=== PATIENT | male | born 1955 | race American Indian/Alaskan Native ===

== ENCOUNTER 2017-03-13 08:11 | Inpatient (IN) | payer OTHER ==
[~2017-03-13 08:11] MED LIST: KETALAR ONE; QUELICIN ONE; ZEMURON IV ONE
[2017-03-13] MEDS ORDERED: ARTIFICIAL TEARS OPHTH OINT OU PRN (08:24)
[2017-03-13] MEDS ORDERED: VASELINE LIP THERAPY TP PRN (08:24)
[2017-03-13] MEDS ORDERED: KETALAR IV ONE (08:27)
--- NOTE | 2017-03-13 08:39 | Admit Criteria Form ---
Admission Criteria Documentation: RESPIRATORY FAILURE GRG Clinical Indications for Admission to Inpatient Care (Place 'X' for any and all applicable criteria): Hospital admission is needed for appropriate care of the patient because of acute respiratory failure or insufficiency as indicated by ANY ONE of the following(1)(2)(3)(4)(5)(6)(7)(8): [ X]I. Mechanical ventilation needed (acute invasive or noninvasive) [ ]II. Severe ventilation deficit as indicated by ANY ONE of the following (9) [ ]a) Respiratory acidosis (pH less than 7.32 and partial pressure of carbon dioxide greater than 40 mm Hg (5.3 kPa)) [ ]b) Partial pressure of carbon dioxide greater than 44 mm Hg (5.9 kPa ) (new) [ ]c) Airflow measurements less than 25% of predicted (eg, peak expiratory flow rate less than 100 L/minute) [ ]d) Forced vital capacity less than 15 mL/kg of ideal body weight, or 50% decrease in vital capacity from baseline [ ]III. Noncardiac pulmonary edema not resolving with rapid emergency treatment (8) [ ]IV. Severe respiratory distress as indicated by ANY ONE of the following: [ ]a) Severe tachypnea (respiratory rate greater than 30, greater than 45 for 6-month-old, greater than 60 for ) [ ]b) Severe hypoxemia (partial pressure of oxygen less than 50 mm Hg ( 6.7 kPa) on greater than 50% oxygen or partial pressure of oxygen to FIO2 ratio less than 200) [ ]c) Mental status deterioration from respiratory disease [ ]V. Airway obstruction or inadequate protection [A](10)(11) The original [employer] content created by [employer] has been revised. The portions of the content which have been revised are identified through the use of italic text or in bold, and [email or web address] has neither reviewed nor approved the modified material. All other unmodified content is copyright [employer]. Please see references footnoted in the original [employer] edition 2016 Admission Criteria Met: Yes
[2017-03-13 08:57] LABS: Basophils % (Auto) 0.8 % (0.0-1.8); Eosinophils % (Auto) 3.5 % (0.0-4.3); Hematocrit 46.9 % (35.5-45.6); Hemoglobin 15.3 gm/dl (11.8-15.2); Mean Corpuscular HGB Conc 33 % (32-34); Mean Corpuscular Hemoglobin 33 pg (28-32); Mean Corpuscular Volume 100 fl (84-94); Platelet Count 251 K/mm3 (140-440); Red Blood Count 4.71 M/mm3 (3.65-5.03); Red Cell Distribution Width 13.8 % (13.2-15.2); White Blood Count 10.3 K/mm3 (4.5-11.0)
--- NOTE | 2017-03-13 09:05 | XRay Report ---
Single view chest: History: ET tube placement. Findings: Normal cardiomediastinal silhouette. Trachea is midline. Tip of endotracheal tube in normal position. No consolidation or pleural effusion. Impression: No consolidation or pleural effusion. Stable endotracheal tube.
[2017-03-13 09:07] LABS: Urine Drugs of Abuse Note Disclamer
[2017-03-13 09:11] LABS: Calcium 9.4 mg/dL (8.4-10.2); Chloride 100.5 mmol/L (98-107); Magnesium 3.7 mg/dL (1.7-2.3); Potassium 4.5 mmol/L (3.6-5.0)
[2017-03-13 09:12] LABS: Creatine Kinase MB 2.9 ng/mL (0.0-4.0)
[2017-03-13 09:13] LABS: Alanine Aminotransferase 21 units/L (7-56); Albumin 4.5 g/dL (3.9-5); Albumin/Globulin Ratio 1.6 %; Alkaline Phosphatase 91 units/L (35-129); Total Protein 7.3 g/dL (6.3-8.2)
[2017-03-13 09:14] LABS: Creatine Kinase 267 units/L (55-170)
[2017-03-13 09:15] LABS: Bilirubin,Direct < 0.2 mg/dL (0-0.2)
[2017-03-13] MEDS ORDERED: LEVAQUIN 500MG/100ML 500 MG/100 ML BAG IV ONE (09:16)
[2017-03-13 09:31] LABS: ISTAT Base Excess -4; ISTAT HCO3 23.3; ISTAT PCO2 53.6 (35-45); ISTAT PH 7.247 (7.35-7.45); ISTAT PO2 175 (80-105); ISTAT SO2 99; ISTAT TCO2 25
[2017-03-13 09:35] LABS: Bilirubin,Urine NEG (Negative); Blood,Urine MOD (Negative); Ketones,Urine TR mg/dL (Negative); Leukocyte Esterase,Urine NEG (Negative); Mucus,Urine FEW /HPF; Nitrite,Urine NEG (Negative); Urobilinogen,Urine < 2.0 mg/dL (<2.0)
[2017-03-13] MEDS: NACL 0.9% 1000 ML 1,000 ML IV ONE (09:39)
[2017-03-13] MEDS: ATIVAN 100 MG in NACL 0.9% 50 ML, VIAFLEX EMPTY CONTAINER 0 ML IV SCH ×2 (09:40→18:45)
[2017-03-13 09:45] LABS: Partial Thromboplastin Time 27.2 Sec. (24.2-36.6)
[2017-03-13] MEDS ORDERED: NACL 0.9% 500 ML IV SCH (10:00)
--- NOTE | 2017-03-13 10:37 | Emergency Department Report ---
ED General Adult HPI - General Chief complaint: Dyspnea/Respdistress Stated complaint: DIFF BREATHING Time Seen by Provider: 03/13/17 08:24 Source: EMS Mode of arrival: Stretcher Limitations: Other - History of Present Illness Initial comments: Somewhat limited history is available from paramedics on this patient brought in in severe respiratory distress. Paramedics state that the patient's " stopped breathing and route to the hospital. They initiated Ambu bag assist. They found the patient in the yard covered with grass but at that time he was conversant and told him he was suffering from an asthma attack. He denied any chest pain. He was given magnesium and Solu-Medrol 2 g and 125 IV and route to the hospital. He was very agitated on arrival and medics were attempting Ambu bag assist with very limited success. Patient arrives in extremis. He is writhing and extremely agitated. He is wheezing but moving limited air. He is using accessory muscles. He is unable to speak. He was immediately prepared for rapid sequence intubation. He was sedated with 100 mg of ketamine on arrival. This enabled placement of a non- rebreather mask yielding a pulse oximetry of 100%. According to the ladies that arrived later on, the patient does have a home nebulizer machine and uses a handheld inhaler. He has never been intubated past. -: minutes(s), hour(s) Severity scale (0 -10): 0 - Related Data Home Medications Medication Instructions Recorded Confirmed Last Taken Unobtainable 03/13/17 03/13/17 Unknown Allergies Allergy/AdvReac Type Severity Reaction Status Date / Time No Known Allergies Allergy Unverified 03/13/17 08:35 ED Review of Systems ROS: Stated complaint: DIFF BREATHING Other details as noted in HPI Comment: Unobtainable due to pts medical conditions ED Past Medical Hx - Past Medical History Hx Asthma: Yes Hx COPD: Yes - Social History Smoking Status: Current Every Day Smoker Substance Use Type: None - Medications Home Medications: Home Medications Medication Instructions Recorded Confirmed Last Taken Type Unobtainable 03/13/17 03/13/17 Unknown History ED Physical Exam - General Limitations: Other General appearance: in distress, other (agitated and incoherent) - Head Head exam: Present: atraumatic, normocephalic - Eye Eye exam: Absent: scleral icterus - ENT ENT exam: Present: normal orophraynx, mucous membranes moist - Neck Neck exam: Present: normal inspection. Absent: tenderness, meningismus - Respiratory Respiratory exam: Present: wheezes, accessory muscle use, decreased breath sounds, other (severe respiratory distress) - Cardiovascular Cardiovascular Exam: Present: bradycardia - GI/Abdominal GI/Abdominal exam: Present: soft, normal bowel sounds. Absent: distended, tenderness, guarding, rebound, rigid - Extremities Exam Extremities exam: Present: normal inspection. Absent: tenderness, calf tenderness - Back Exam Back exam: Present: normal inspection - Neurological Exam Neurological exam: Present: alert, altered, other (no apparent focal deficit on limited examination) - Psychiatric Psychiatric exam: Present: agitated ED Course Vital Signs 03/13/17 03/13/17 03/13/17 08:15 08:39 08:40 Temperature Pulse Rate 100 H 122 H 121 H Respiratory 12 21 26 H Rate Blood Pressure 150/102 133/93 Blood Pressure [Left] O2 Sat by Pulse 97 Oximetry 03/13/17 03/13/17 03/13/17 08:45 08:51 09:00 Temperature 94.8 F L Pulse Rate 124 H 110 H 112 H Respiratory 12 22 16 Rate Blood Pressure 119/83 123/69 Blood Pressure 149/100 [Left] O2 Sat by Pulse 100 100 100 Oximetry 03/13/17 03/13/17 03/13/17 09:11 09:21 09:30 Temperature Pulse Rate 113 H 102 H 97 H Respiratory 16 20 20 Rate Blood Pressure 123/69 139/97 137/93 Blood Pressure [Left] O2 Sat by Pulse 100 96 Oximetry 03/13/17 03/13/17 03/13/17 09:41 09:51 10:00 Temperature Pulse Rate 91 H 94 H 90 Respiratory 20 20 20 Rate Blood Pressure 137/93 144/94 148/95 Blood Pressure [Left] O2 Sat by Pulse 95 96 97 Oximetry 03/13/17 03/13/17 10:11 10:21 Temperature Pulse Rate 91 H 91 H Respiratory 20 20 Rate Blood Pressure 144/94 135/96 Blood Pressure [Left] O2 Sat by Pulse 96 97 Oximetry - Reevaluation(s) Reevaluation #1: The patient was successfully intubated under direct laryngoscopy via single attempt. He maintained his pulse oximetry had 100% throughout. His airway was secured. He was amply sedated using ketamine and Ativan. Later Dr. Lopez requested that fentanyl be utilized. Nursing staff was informed. A critical lactic acid level of 6 was reported. Patient was given IV fluids and Zosyn plus Levaquin. It is hard to identify a definite source of infection at this juncture. It is unknown if the patient had a prior hypotensive episode before arrival but he has been normotensive here. In any case he will be admitted by Dr. Mendes to the hospitalist service. I did speak to Dr. Lopez concerning his ICU placement. 03/13/17 10:41 - Intubation Sedative: Ketamine Paralytic: Succinylcholine Laryngoscope: Griselda Size: 4 ET Tube Size: 8 Tube Secured Depth (cm): 23 Tube Secured Location: teeth Tube Placement Confirmation: visualized tube passing t, equal breath sounds bilat, no breath sounds over epi, confirmation by capnometr Patient Tolerated Procedure: well Intubation Complications: none ED Medical Decision Making - Lab Data Result diagrams: 03/13/17 08:40 03/13/17 08:40 Laboratory Results - last 24 hr 03/13/17 03/13/17 03/13/17 08:40 08:40 08:40 WBC 10.3 RBC 4.71 Hgb 15.3 H Hct 46.9 H MCV 100 H MCH 33 H MCHC 33 RDW 13.8 Plt Count 251 Lymph % (Auto) 43.5 H Caroline % (Auto) 8.1 H Eos % (Auto) 3.5 Baso % (Auto) 0.8 Lymph # 4.5 Caroline # 0.8 Eos # 0.4 Baso # 0.1 Seg Neutrophils % 44.1 Seg Neutrophils # 4.5 PT INR APTT POC ABG pH POC ABG pCO2 POC ABG pO2 POC ABG HCO3 POC ABG Total CO2 POC ABG O2 Sat POC ABG Base Excess FiO2 Sodium 141 Potassium 4.5 Chloride 100.5 Carbon Dioxide 19 L Anion Gap 26 BUN 12 Creatinine 1.5 Estimated GFR 57 BUN/Creatinine Ratio 8.00 Glucose 188 H Lactic Acid 6.00 H* Calcium 9.4 Magnesium 3.70 H Total Bilirubin Direct Bilirubin AST ALT Alkaline Phosphatase Total Creatine Kinase CK-MB (CK-2) CK-MB (CK-2) Rel Index Troponin T NT-Pro-B Natriuret Pep Total Protein Albumin Albumin/Globulin Ratio Urine Color Urine Turbidity Urine pH Ur Specific [place] Urine Protein Urine Glucose (UA) Urine Ketones Urine Blood Urine Nitrite Urine Bilirubin Urine Urobilinogen Ur Leukocyte Esterase Urine WBC (Auto) Urine RBC (Auto) U Epithel Cells (Auto) Hyaline Casts Urine Mucus 03/13/17 03/13/17 03/13/17 08:40 08:40 08:40 WBC RBC Hgb Hct MCV MCH MCHC RDW Plt Count Lymph % (Auto) [place] % (Auto) Eos % (Auto) Baso % (Auto) Lymph # Caroline # Eos # Baso # Seg Neutrophils % Seg Neutrophils # PT 13.1 INR 1.00 APTT 27.2 POC ABG pH POC ABG pCO2 POC ABG pO2 POC ABG HCO3 POC ABG Total CO2 POC ABG O2 Sat POC ABG Base Excess FiO2 Sodium Potassium Chloride Carbon Dioxide Anion Gap BUN Creatinine Estimated GFR BUN/Creatinine Ratio Glucose Lactic Acid Calcium Magnesium Total Bilirubin 0.50 Direct Bilirubin < 0.2 AST 38 ALT 21 Alkaline Phosphatase 91 Total Creatine Kinase 267 H CK-MB (CK-2) 2.9 CK-MB (CK-2) Rel Index 1.0 Troponin T < 0.010 NT-Pro-B Natriuret Pep 45.83 Total Protein 7.3 Albumin 4.5 Albumin/Globulin Ratio 1.6 Urine Color Urine Turbidity Urine pH Ur Specific [place] Urine Protein Urine Glucose (UA) Urine Ketones Urine Blood Urine Nitrite Urine Bilirubin Urine Urobilinogen Ur Leukocyte Esterase Urine WBC (Auto) Urine RBC (Auto) U Epithel Cells (Auto) Hyaline Casts Urine Mucus 03/13/17 03/13/17 08:44 09:17 WBC RBC Hgb Hct MCV MCH MCHC RDW Plt Count Lymph % (Auto) [place] % (Auto) Eos % (Auto) Baso % (Auto) Lymph # Caroline # Eos # Baso # Seg Neutrophils % Seg Neutrophils # PT INR APTT POC ABG pH 7.247 L POC ABG pCO2 53.6 H POC ABG pO2 175 H POC ABG HCO3 23.3 POC ABG Total CO2 25 POC ABG O2 Sat 99 POC ABG Base Excess -4 FiO2 50 Sodium Potassium Chloride Carbon Dioxide Anion Gap BUN Creatinine Estimated GFR BUN/Creatinine Ratio Glucose Lactic Acid Calcium Magnesium Total Bilirubin Direct Bilirubin AST ALT Alkaline Phosphatase Total Creatine Kinase CK-MB (CK-2) CK-MB (CK-2) Rel Index Troponin T NT-Pro-B Natriuret Pep Total Protein Albumin Albumin/Globulin Ratio Urine Color Yellow Urine Turbidity Clear Urine pH 6.0 Ur Specific [place] 1.013 Urine Protein 100 mg/dl Urine Glucose (UA) 150 Urine Ketones Tr Urine Blood Mod Urine Nitrite Neg Urine Bilirubin Neg Urine Urobilinogen < 2.0 Ur Leukocyte Esterase Neg Urine WBC (Auto) 1.0 Urine RBC (Auto) 2.0 U Epithel Cells (Auto) < 1.0 Hyaline Casts 1 Urine Mucus Few Critical Care Time: Yes Critical care time in (mins) excluding proc time.: 60 Critical care attestation.: If time is entered above; I have spent that time in minutes in the direct care of this critically ill patient, excluding procedure time. ED Disposition Clinical Impression: Lactic acidosis, Renal insufficiency, mild Status asthmaticus Qualifiers: Asthma severity: severe persistent Qualified Code(s): J45.52 - Severe persistent asthma with status asthmaticus Respiratory failure Qualifiers: Chronicity: acute Respiratory failure complication: hypercapnia Qualified Code( s): J96.02 - Acute respiratory failure with hypercapnia Disposition: OP ADMITTED IP TO THIS HOSP Is pt being admited?: Yes Does the pt Need Aspirin: Yes Condition: Stable Referrals: PRIMARY CARE, [Primary Care Provider] - 3-5 Days Time of Disposition: 10:46
[2017-03-13] MEDS ORDERED: LOVENOX SUB-Q ONE (10:47)
[2017-03-13] MEDS ORDERED: ASPIRIN PR ONE (10:47)
[2017-03-13] MEDS ORDERED: LOVENOX SUB-Q SCH ×2 (11:00→11:59)
[2017-03-13] MEDS ORDERED: ZOSYN/NS 3.375GM/50ML 50 ML IV SCH (12:00)
[2017-03-13] MEDS: ZOSYN/NS 3.375GM/50ML 3.375 GM/50 ML BAG IV SCH ×2 (14:49→21:33)
[2017-03-13 15:35] LABS: ISTAT Base Excess 3; ISTAT HCO3 26.9; ISTAT PCO2 39.8 (35-45); ISTAT PH 7.439 (7.35-7.45); ISTAT PO2 112 (80-105); ISTAT SO2 99; ISTAT TCO2 28
[2017-03-13] MEDS: PEPCID IV SCH ×2 (15:39→23:32)
--- NOTE | 2017-03-13 15:54 | History and Physical Report ---
History of Present Illness Date of examination: 03/13/17 Date of admission: 03/13/17 10:47 History of present illness: Somewhat limited history is available from paramedics on this patient brought in in severe respiratory distress. Paramedics state that the patient's " stopped breathing and route to the hospital. They initiated Ambu bag assist. They found the patient in the yard covered with grass but at that time he was conversant and told him he was suffering from an asthma attack. He denied any chest pain. He was given magnesium and Solu-Medrol 2 g and 125 IV and route to the hospital. He was very agitated on arrival and medics were attempting Ambu bag assist with very limited success. Patient arrives in extremis. He is writhing and extremely agitated. He is wheezing but moving limited air. He is using accessory muscles. He is unable to speak. He was immediately prepared for rapid sequence intubation. He was sedated with 100 mg of ketamine on arrival. This enabled placement of a non- rebreather mask yielding a pulse oximetry of 100%. According to the ladies that arrived later on, the patient does have a home nebulizer machine and uses a handheld inhaler. He has never been intubated past. Past History Past Medical History: COPD, other (asthma) Medications and Allergies Allergies Allergy/AdvReac Type Severity Reaction Status Date / Time No Known Allergies Allergy Unverified 03/13/17 08:35 Home Medications Medication Instructions Recorded Confirmed Last Taken Type Unobtainable 03/13/17 03/13/17 Unknown History Active Meds: Active Medications Enoxaparin Sodium (Lovenox) 40 mg SUB-Q QDAY@1000 [place] Famotidine (Pepcid) 20 mg IV BID [place] Last Admin: 03/13/17 15:39 Dose: 20 mg Hydrophilic Ointment (Vaseline Lip Therapy) 1 applic TP Q2HR PRN PRN Reason: Dry Lips Ketamine HCl 50 mg/ Sodium (Chloride) 100.5 mls @ 10.4 mls/hr IV DIRECT [place] Stop: 03/13/17 23:59 Lorazepam 100 mg/ Sodium Chloride/ Miscellaneous Information 100 mls @ 1 mls/ hr IV TITR [place]; 1 MG/HR PRN Reason: Protocol Last Admin: 03/13/17 09:40 Dose: 1 mg/hr, 1 mls/hr Piperacillin Sod/Tazobactam Sod (Zosyn/Ns 3.375gm/50ml) 3.375 gm in 50 mls @ 100 mls/hr IV Q8HR [place] PRN Reason: Protocol Last Admin: 03/13/17 14:49 Dose: 100 mls/hr Influenza Virus Vaccine Quadrival (Fluarix Quad [id number](36 Mos+)) 60 mcg IM .ONCE ONE Stop: 03/14/17 12:01 Multi-Ingred Cream/Lotion/Oil/Oint (Artificial Tears Ophth Oint) 1 applic OU Q4HR PRN PRN Reason: Dry Eye(s) Pneumococcal Polyvalent Vaccine (Pneumovax 23) 0.5 ml IM .ONCE ONE Stop: 03/14/17 12:01 Sodium Chloride (Nacl 0.9% 500 Ml) 1 ml IV DIRECT [place] Review of Systems Respiratory: shortness of breath, dyspnea on exertion, wheezing Exam - Constitutional Vitals: Temp Pulse Resp BP Pulse Ox 97.5 F L 97 H 23 128/91 99 03/13/17 15:38 03/13/17 15:30 03/13/17 15:30 03/13/17 15:30 03/13/17 15:30 General appearance: Present: severe distress - EENT Eyes: Present: PERRL ENT: clear oral mucosa - Neck Neck: Present: supple, normal ROM - Respiratory Respiratory effort: labored Respiratory: bilateral: rhonchi - Cardiovascular Rhythm: regular Heart Sounds: Present: S1 & S2 - Extremities Extremities: no ischemia, No edema - Abdominal General gastrointestinal: Present: soft, non-distended Results - Labs CBC & Chem 7: 03/13/17 08:40 03/13/17 08:40 Labs: Laboratory Last Values WBC 10.3 K/mm3 (4.5-11.0) 03/13/17 08:40 RBC 4.71 M/mm3 (3.65-5.03) 03/13/17 08:40 Hgb 15.3 gm/dl (11.8-15.2) H 03/13/17 08:40 Hct 46.9 % (35.5-45.6) H 03/13/17 08:40 MCV 100 fl (84-94) H 03/13/17 08:40 MCH 33 pg (28-32) H 03/13/17 08:40 MCHC 33 % (32-34) 03/13/17 08:40 RDW 13.8 % (13.2-15.2) 03/13/17 08:40 Plt Count 251 K/mm3 (140-440) 03/13/17 08:40 Lymph % (Auto) 43.5 % (13.4-35.0) H 03/13/17 08:40 [place] % (Auto) 8.1 % (0.0-7.3) H 03/13/17 08:40 Eos % (Auto) 3.5 % (0.0-4.3) 03/13/17 08:40 Baso % (Auto) 0.8 % (0.0-1.8) 03/13/17 08:40 Lymph # 4.5 K/mm3 (1.2-5.4) 03/13/17 08:40 [place] # 0.8 K/mm3 (0.0-0.8) 03/13/17 08:40 Eos # 0.4 K/mm3 (0.0-0.4) 03/13/17 08:40 Baso # 0.1 K/mm3 (0.0-0.1) 03/13/17 08:40 Seg Neutrophils % 44.1 % (40.0-70.0) 03/13/17 08:40 Seg Neutrophils # 4.5 K/mm3 (1.8-7.7) 03/13/17 08:40 PT 13.1 Sec. (12.2-14.9) 03/13/17 08:40 INR 1.00 (0.87-1.13) 03/13/17 08:40 APTT 27.2 Sec. (24.2-36.6) 03/13/17 08:40 POC ABG pH 7.439 (7.35-7.45) 03/13/17 15:24 POC ABG pCO2 39.8 (35-45) 03/13/17 15:24 POC ABG pO2 112 (80-105) H 03/13/17 15:24 POC ABG HCO3 26.9 03/13/17 15:24 POC ABG Total CO2 28 03/13/17 15:24 POC ABG O2 Sat 99 03/13/17 15:24 POC ABG Base Excess 3 03/13/17 15:24 FiO2 30 % 03/13/17 15:24 Sodium 141 mmol/L (137-145) 03/13/17 08:40 Potassium 4.5 mmol/L (3.6-5.0) 03/13/17 08:40 Chloride 100.5 mmol/L (98-107) 03/13/17 08:40 Carbon Dioxide 19 mmol/L (22-30) L 03/13/17 08:40 Anion Gap 26 mmol/L 03/13/17 08:40 BUN 12 mg/dL (9-20) 03/13/17 08:40 Creatinine 1.5 mg/dL (0.8-1.5) 03/13/17 08:40 Estimated GFR 57 ml/min 03/13/17 08:40 BUN/Creatinine Ratio 8.00 % 03/13/17 08:40 Glucose 188 mg/dL (75-100) H 03/13/17 08:40 Lactic Acid 1.40 mmol/L (0.7-2.0) 03/13/17 13:36 Calcium 9.4 mg/dL (8.4-10.2) 03/13/17 08:40 Magnesium 3.70 mg/dL (1.7-2.3) H 03/13/17 08:40 Total Bilirubin 0.50 mg/dL (0.1-1.2) 03/13/17 08:40 Direct Bilirubin < 0.2 mg/dL (0-0.2) 03/13/17 08:40 AST 38 units/L (5-40) 03/13/17 08:40 ALT 21 units/L (7-56) 03/13/17 08:40 Alkaline Phosphatase 91 units/L (35-129) 03/13/17 08:40 Total Creatine Kinase 267 units/L (55-170) H 03/13/17 08:40 CK-MB (CK-2) 2.9 ng/mL (0.0-4.0) 03/13/17 08:40 CK-MB (CK-2) Rel Index 1.0 (0-4) 03/13/17 08:40 Troponin T < 0.010 ng/mL (0.00-0.029) 03/13/17 13:36 NT-Pro-B Natriuret Pep 45.83 pg/mL (0-900) 03/13/17 08:40 Total Protein 7.3 g/dL (6.3-8.2) 03/13/17 08:40 Albumin 4.5 g/dL (3.9-5) 03/13/17 08:40 Albumin/Globulin Ratio 1.6 % 03/13/17 08:40 Urine Color Yellow (Yellow) 03/13/17 08:44 Urine Turbidity Clear (Clear) 03/13/17 08:44 Urine pH 6.0 (5.0-7.0) 03/13/17 08:44 Ur Specific [place] 1.013 (1.003-1.030) 03/13/17 08:44 Urine Protein 100 mg/dl mg/dL (Negative) 03/13/17 08:44 Urine Glucose (UA) 150 mg/dL (Negative) 03/13/17 08:44 Urine Ketones Tr mg/dL (Negative) 03/13/17 08:44 Urine Blood Mod (Negative) 03/13/17 08:44 Urine Nitrite Neg (Negative) 03/13/17 08:44 Urine Bilirubin Neg (Negative) 03/13/17 08:44 Urine Urobilinogen < 2.0 mg/dL (<2.0) 03/13/17 08:44 Ur Leukocyte Esterase Neg (Negative) 03/13/17 08:44 Urine WBC (Auto) 1.0 /HPF (0.0-6.0) 03/13/17 08:44 Urine RBC (Auto) 2.0 /HPF (0.0-6.0) 03/13/17 08:44 U Epithel Cells (Auto) < 1.0 /HPF (0-13.0) 03/13/17 08:44 Hyaline Casts 1 /LPF 03/13/17 08:44 Urine Mucus Few /HPF 03/13/17 08:44 Urine Opiates Screen Presumptive negative 03/13/17 08:43 Urine Methadone Screen Presumptive negative 03/13/17 08:43 Ur Barbiturates Screen Presumptive positive 03/13/17 08:43 Ur Phencyclidine Scrn Presumptive negative 03/13/17 08:43 Ur Amphetamines Screen Presumptive negative 03/13/17 08:43 U Benzodiazepines Scrn Presumptive negative 03/13/17 08:43 Urine Cocaine Screen Presumptive positive 03/13/17 08:43 U Marijuana (THC) Screen Presumptive positive 03/13/17 08:43 Drugs of Abuse Note Disclamer 03/13/17 08:43 Assessment and Plan - Patient Problems (1) COPD (chronic obstructive pulmonary disease) Current Visit: Yes Status: Acute Qualifiers: COPD type: C Chronic bronchitis type: C Emphysema type: E (2) Respiratory failure Current Visit: Yes Status: Acute Qualifiers: Chronicity: acute Respiratory failure complication: hypercapnia Qualified Code(s): J96.02 - Acute respiratory failure with hypercapnia Plan to address problem: Patient was intubated in the field will be admitted to ICU. We'll get pulmonary consult. We'll start mechanical Ventilation. Nebulizer treatments. (3) Status asthmaticus Current Visit: Yes Status: Acute Qualifiers: Asthma severity: severe persistent Qualified Code(s): J45.52 - Severe persistent asthma with status asthmaticus Plan to address problem: nebulizer treatment. Mechanical intubation. Pulmonary consult
[2017-03-13] MEDS: NACL 0.9% IV SCH ×2 (16:34→23:15)
[2017-03-13] MEDS: KETALAR IV SCH ×2 (16:34→23:15)
[2017-03-14] MEDS: ZOSYN/NS 3.375GM/50ML 3.375 GM/50 ML BAG IV SCH ×3 (06:19→21:45)
[2017-03-14 07:40] LABS: ISTAT Base Excess -1; ISTAT HCO3 24.1; ISTAT PCO2 41.5 (35-45); ISTAT PH 7.373 (7.35-7.45); ISTAT PO2 97 (80-105); ISTAT SO2 97; ISTAT TCO2 25
--- NOTE | 2017-03-14 08:26 | Progress Note ---
Assessment and Plan - Patient Problems (1) COPD (chronic obstructive pulmonary disease) Current Visit: Yes Status: Acute Qualifiers: COPD type: C Chronic bronchitis type: C Emphysema type: E (2) Respiratory failure Current Visit: Yes Status: Acute Qualifiers: Chronicity: acute Respiratory failure complication: hypercapnia Qualified Code(s): J96.02 - Acute respiratory failure with hypercapnia Plan to address problem: Continue mechanical Ventilation. Pulmonary following. Nebulizer treatments and IV steroids. (3) Status asthmaticus Current Visit: Yes Status: Acute Qualifiers: Asthma severity: severe persistent Qualified Code(s): J45.52 - Severe persistent asthma with status asthmaticus Plan to address problem: Continue current management and wean as appropriate History Interval history: Patient intubated and sedated Hospitalist Physical - Constitutional Vitals: Temp Pulse Resp BP Pulse Ox 98.8 F 92 H 21 132/85 97 03/14/17 03:44 03/14/17 08:00 03/14/17 08:00 03/14/17 08:00 03/14/17 08:00 General appearance: Present: severe distress, other (intubated) - EENT Eyes: Present: PERRL, EOM intact ENT: hearing intact, clear oral mucosa - Neck Neck: Present: supple, normal ROM - Respiratory Respiratory effort: normal Respiratory: bilateral: rhonchi - Cardiovascular Rhythm: regular Heart Sounds: Present: S1 & S2 - Extremities Extremities: no ischemia, No edema - Abdominal General gastrointestinal: soft, non-tender, non-distended, normal bowel sounds Results - Labs CBC & Chem 7: 03/13/17 08:40 03/13/17 08:40 Labs: Laboratory Last Values WBC 10.3 K/mm3 (4.5-11.0) 03/13/17 08:40 RBC 4.71 M/mm3 (3.65-5.03) 03/13/17 08:40 Hgb 15.3 gm/dl (11.8-15.2) H 03/13/17 08:40 Hct 46.9 % (35.5-45.6) H 03/13/17 08:40 MCV 100 fl (84-94) H 03/13/17 08:40 MCH 33 pg (28-32) H 03/13/17 08:40 MCHC 33 % (32-34) 03/13/17 08:40 RDW 13.8 % (13.2-15.2) 03/13/17 08:40 Plt Count 251 K/mm3 (140-440) 03/13/17 08:40 Lymph % (Auto) 43.5 % (13.4-35.0) H 03/13/17 08:40 [place] % (Auto) 8.1 % (0.0-7.3) H 03/13/17 08:40 Eos % (Auto) 3.5 % (0.0-4.3) 03/13/17 08:40 Baso % (Auto) 0.8 % (0.0-1.8) 03/13/17 08:40 Lymph # 4.5 K/mm3 (1.2-5.4) 03/13/17 08:40 [place] # 0.8 K/mm3 (0.0-0.8) 03/13/17 08:40 Eos # 0.4 K/mm3 (0.0-0.4) 03/13/17 08:40 Baso # 0.1 K/mm3 (0.0-0.1) 03/13/17 08:40 Seg Neutrophils % 44.1 % (40.0-70.0) 03/13/17 08:40 Seg Neutrophils # 4.5 K/mm3 (1.8-7.7) 03/13/17 08:40 PT 13.1 Sec. (12.2-14.9) 03/13/17 08:40 INR 1.00 (0.87-1.13) 03/13/17 08:40 APTT 27.2 Sec. (24.2-36.6) 03/13/17 08:40 POC ABG pH 7.373 (7.35-7.45) 03/14/17 06:21 POC ABG pCO2 41.5 (35-45) 03/14/17 06:21 POC ABG pO2 97 (80-105) 03/14/17 06:21 POC ABG HCO3 24.1 03/14/17 06:21 POC ABG Total CO2 25 03/14/17 06:21 POC ABG O2 Sat 97 03/14/17 06:21 POC ABG Base Excess -1 03/14/17 06:21 FiO2 30 % 03/14/17 06:21 Sodium 141 mmol/L (137-145) 03/13/17 08:40 Potassium 4.5 mmol/L (3.6-5.0) 03/13/17 08:40 Chloride 100.5 mmol/L (98-107) 03/13/17 08:40 Carbon Dioxide 19 mmol/L (22-30) L 03/13/17 08:40 Anion Gap 26 mmol/L 03/13/17 08:40 BUN 12 mg/dL (9-20) 03/13/17 08:40 Creatinine 1.5 mg/dL (0.8-1.5) 03/13/17 08:40 Estimated GFR 57 ml/min 03/13/17 08:40 BUN/Creatinine Ratio 8.00 % 03/13/17 08:40 Glucose 188 mg/dL (75-100) H 03/13/17 08:40 POC Glucose 76 (70-105) 03/14/17 05:47 Lactic Acid 1.40 mmol/L (0.7-2.0) 03/13/17 13:36 Calcium 9.4 mg/dL (8.4-10.2) 03/13/17 08:40 Magnesium 3.70 mg/dL (1.7-2.3) H 03/13/17 08:40 Total Bilirubin 0.50 mg/dL (0.1-1.2) 03/13/17 08:40 Direct Bilirubin < 0.2 mg/dL (0-0.2) 03/13/17 08:40 AST 38 units/L (5-40) 03/13/17 08:40 ALT 21 units/L (7-56) 03/13/17 08:40 Alkaline Phosphatase 91 units/L (35-129) 03/13/17 08:40 Total Creatine Kinase 267 units/L (55-170) H 03/13/17 08:40 CK-MB (CK-2) 2.9 ng/mL (0.0-4.0) 03/13/17 08:40 CK-MB (CK-2) Rel Index 1.0 (0-4) 03/13/17 08:40 Troponin T < 0.010 ng/mL (0.00-0.029) 03/13/17 13:36 NT-Pro-B Natriuret Pep 45.83 pg/mL (0-900) 03/13/17 08:40 Total Protein 7.3 g/dL (6.3-8.2) 03/13/17 08:40 Albumin 4.5 g/dL (3.9-5) 03/13/17 08:40 Albumin/Globulin Ratio 1.6 % 03/13/17 08:40 Urine Color Yellow (Yellow) 03/13/17 08:44 Urine Turbidity Clear (Clear) 03/13/17 08:44 Urine pH 6.0 (5.0-7.0) 03/13/17 08:44 Ur Specific [place] 1.013 (1.003-1.030) 03/13/17 08:44 Urine Protein 100 mg/dl mg/dL (Negative) 03/13/17 08:44 Urine Glucose (UA) 150 mg/dL (Negative) 03/13/17 08:44 Urine Ketones Tr mg/dL (Negative) 03/13/17 08:44 Urine Blood Mod (Negative) 03/13/17 08:44 Urine Nitrite Neg (Negative) 03/13/17 08:44 Urine Bilirubin Neg (Negative) 03/13/17 08:44 Urine Urobilinogen < 2.0 mg/dL (<2.0) 03/13/17 08:44 Ur Leukocyte Esterase Neg (Negative) 03/13/17 08:44 Urine WBC (Auto) 1.0 /HPF (0.0-6.0) 03/13/17 08:44 Urine RBC (Auto) 2.0 /HPF (0.0-6.0) 03/13/17 08:44 U Epithel Cells (Auto) < 1.0 /HPF (0-13.0) 03/13/17 08:44 Hyaline Casts 1 /LPF 03/13/17 08:44 Urine Mucus Few /HPF 03/13/17 08:44 Urine Opiates Screen Presumptive negative 03/13/17 08:43 Urine Methadone Screen Presumptive negative 03/13/17 08:43 Ur Barbiturates Screen Presumptive positive 03/13/17 08:43 Ur Phencyclidine Scrn Presumptive negative 03/13/17 08:43 Ur Amphetamines Screen Presumptive negative 03/13/17 08:43 U Benzodiazepines Scrn Presumptive negative 03/13/17 08:43 Urine Cocaine Screen Presumptive positive 03/13/17 08:43 U Marijuana (THC) Screen Presumptive positive 03/13/17 08:43 Drugs of Abuse Note Disclamer 03/13/17 08:43
--- NOTE | 2017-03-14 09:14 | XRay Report ---
AP CHEST: HISTORY: Followup respiratory failure The endotracheal tube remains in good position. The lungs are hyperinflated but clear. Normal heart and mediastinal structures. No significant change since yesterday's exam. IMPRESSION: No change. Hyperinflated lungs.
[2017-03-14] MEDS: LOVENOX SUB-Q SCH (09:35)
[2017-03-14] MEDS: PEPCID IV SCH ×2 (09:35→21:45)
[2017-03-14] MEDS ORDERED: PROVENTIL IH PRN (10:00)
[2017-03-14] MEDS: NACL 0.9% 1000 ML 1,000 ML IV SCH ×2 (10:10→17:39)
[2017-03-14] MEDS: ATROVENT IH SCH ×3 (10:20→20:10)
[2017-03-14] MEDS ORDERED: FLUARIX QUAD 2016-2017(36 MOS+) IM ONE (12:00)
[2017-03-14] MEDS ORDERED: PNEUMOVAX 23 IM ONE (12:00)
[2017-03-14 12:19] LABS: ISTAT Base Excess -2; ISTAT HCO3 23.4; ISTAT PCO2 42.7 (35-45); ISTAT PH 7.348 (7.35-7.45); ISTAT PO2 97 (80-105); ISTAT SO2 97; ISTAT TCO2 25
--- NOTE | 2017-03-14 12:19 | Consultation ---
History of Present Illness Consult date: 03/14/17 Requesting physician: LYNN APPLE Reason for consult: asthma History of present illness: 61 y/o male admitted with status asthmaticus, requiring mechanical ventilation. Unable to obtain history from patient as he is intubated and sedated. Per ED , Dr. Morelos, when I spoke to him on yesterday the patient was "wild" and was not a candidate for bipap. Past History Past Medical History: COPD, other (asthma) Past Surgical History: Other (unable to assess) Social history: other (unable to assess) Family history: other (unable to assess) Medications and Allergies Allergies Allergy/AdvReac Type Severity Reaction Status Date / Time No Known Allergies Allergy Unverified 03/13/17 08:35 Home Medications Medication Instructions Recorded Confirmed Last Taken Type Clarithromycin 500 mg PO BID 03/14/17 03/14/17 Unknown History Dicyclomine HCl 10 mg PO BID 03/14/17 03/14/17 Unknown History Omeprazole 40 mg PO DAILY 03/14/17 03/14/17 Unknown History Tiotropium [Spiriva] 2 puff INHALATION QDAY PRN 03/14/17 03/14/17 Unknown History Active Meds: Active Medications Albuterol (Proventil) 2.5 mg IH Q6HRT PRN PRN Reason: Shortness Of Breath Enoxaparin Sodium (Lovenox) 40 mg SUB-Q QDAY@1000 [place] Last Admin: 03/14/17 09:35 Dose: 40 mg Famotidine (Pepcid) 20 mg IV BID [place] Last Admin: 03/14/17 09:35 Dose: 20 mg Hydrophilic Ointment (Vaseline Lip Therapy) 1 applic TP Q2HR PRN PRN Reason: Dry Lips Lorazepam 100 mg/ Sodium Chloride/ Miscellaneous Information 100 mls @ 1 mls/ hr IV TITR [place]; 1 MG/HR PRN Reason: Protocol Last Admin: 03/13/17 18:45 Dose: 1 mg/hr, 1 mls/hr Piperacillin Sod/Tazobactam Sod (Zosyn/Ns 3.375gm/50ml) 3.375 gm in 50 mls @ 100 mls/hr IV Q8HR [place] PRN Reason: Protocol Last Admin: 03/14/17 06:19 Dose: 100 mls/hr Sodium Chloride (Nacl 0.9% 1000 Ml) 1,000 mls @ 125 mls/hr IV DIRECT [facility] Last Admin: 03/14/17 10:10 Dose: 125 mls/hr Ipratropium [place] (Atrovent) 0.5 mg IH Q6HRT [facility] Last Admin: 03/14/17 10:20 Dose: 0.5 mg Methylprednisolone Sodium Succinate (Solu-Medrol) 125 mg IV Q8HR [facility] Last Admin: 03/14/17 10:09 Dose: 125 mg Multi-Ingred Cream/Lotion/Oil/Oint (Artificial Tears Ophth Oint) 1 applic OU Q4HR PRN PRN Reason: Dry Eye(s) Sodium Chloride (Nacl 0.9% 500 Ml) 1 ml IV DIRECT [facility] Last Admin: 03/13/17 23:37 Dose: 1 ml Review of Systems ROS unobtainable: due to endotracheal tube, due to mental status Physical Examination Vital signs: Vital Signs Pulse Resp BP Pulse Ox 124 H 12 150/102 100 03/13/17 08:15 03/13/17 08:15 03/13/17 08:15 03/13/17 08:15 General appearance: no acute distress, lethargic Eyes: non-icteric ENT: other (orally intubated and sedated) Neck: supple Effort: normal Ascultation: Bilateral: diminished breath sounds Percussion: Bilateral: not dull Cardiovascular: regular rate and rhythm Gastrointestinal: normoactive bowel sounds Integumentary: normal Extremities: no edema Musculoskeletal: no deformities Results - Laboratory Findings CBC and BMP: 03/13/17 08:40 03/13/17 08:40 ABG POC ABG pH 7.373 (7.35-7.45) 03/14/17 06:21 POC ABG pCO2 41.5 (35-45) 03/14/17 06:21 POC ABG pO2 97 (80-105) 03/14/17 06:21 POC ABG HCO3 24.1 03/14/17 06:21 POC ABG Total CO2 25 03/14/17 06:21 POC ABG O2 Sat 97 03/14/17 06:21 PT/INR, D-dimer PT 13.1 Sec. (12.2-14.9) 03/13/17 08:40 INR 1.00 (0.87-1.13) 03/13/17 08:40 Abnormal lab findings: Abnormal Labs 03/13/17 15:24 POC ABG pO2 112 H - Diagnostic Findings Chest x-ray: image reviewed (clear, hyperinflated.) Assessment and Plan 61 y/o male with acute respiratory failure secondary to asthma exacerbation 1. PSV ABG is good, however patient still lethargic from sedation. Will attempt extubation later today once more awake 2. Have bipap ordered for PRN 3. Continue steroids, will change to 60q6 4. Will add pulmicort and brovana 5. Continue scheduled nebs. CCT 31 minutes.
[2017-03-14] MEDS: PULMICORT IH SCH (20:10)
[2017-03-14] MEDS: BROVANA NEBU IH SCH (20:10)
[2017-03-15] MEDS: NACL 0.9% 1000 ML 1,000 ML IV SCH (02:00)
[2017-03-15] MEDS: ATROVENT IH SCH ×3 (02:16→20:01)
[2017-03-15 04:37] LABS: Basophils % (Auto) 0.1 % (0.0-1.8); Hematocrit 45.5 % (35.5-45.6); Mean Corpuscular HGB Conc 33 % (32-34); Mean Corpuscular Hemoglobin 32 pg (28-32); Mean Corpuscular Volume 97 fl (84-94); Platelet Count 204 K/mm3 (140-440); Red Blood Count 4.69 M/mm3 (3.65-5.03); Red Cell Distribution Width 13.7 % (13.2-15.2); White Blood Count 10.4 K/mm3 (4.5-11.0)
[2017-03-15 04:52] LABS: Alanine Aminotransferase 13 units/L (7-56); Albumin 3.4 g/dL (3.9-5); Albumin/Globulin Ratio 1.1 %; Alkaline Phosphatase 69 units/L (35-129); Anion Gap 18 mmol/L; BUN/Creatinine Ratio 15.83; Blood Urea Nitrogen 19 mg/dL (9-20); Calcium 8.5 mg/dL (8.4-10.2); Carbon Dioxide 21 mmol/L (22-30); Chloride 104.1 mmol/L (98-107); Glucose 96 mg/dL (75-100); Potassium 5.5 mmol/L (3.6-5.0); Sodium 138 mmol/L (137-145); Total Protein 6.5 g/dL (6.3-8.2)
[2017-03-15] MEDS: ZOSYN/NS 3.375GM/50ML 3.375 GM/50 ML BAG IV SCH ×3 (05:53→23:00)
[2017-03-15] MEDS ORDERED: KIONEX PO ONE (08:30)
--- NOTE | 2017-03-15 09:09 | Progress Note ---
Assessment and Plan Assessment and plan: --Acute on chronic hypoxic respiratory failure Secondary to acute exacerbation of bronchial asthma Status post extubation, oxygen titrated to O2 sats more than 90% Nebulizers, tapering dose of IV steroids, IV antibiotics, inhalation steroids --Acute exacerbation of COPD Nebulizers, IV steroids, antibiotics, inhalation steroids, oxygen --Hyperkalemia; Kayexalate 30 g by mouth closely monitor potassium levels --Ongoing tobacco use; Smoking cessation counseling done strongly advised nicotine patch Risks and complications of ongoing tobacco use discussed with the patient verbalized understanding I spent 8 minutes counseling the patient --DVT prophylaxis with Lovenox DC [place], advance diet as tolerated --Full CODE STATUS --Physical therapy and discharge planning per Case management Patient is stable to be transferred out of ICU today Possible discharge in 1-2 days History Interval history: Patient seen and evaluated in ICU medical records reviewed No new events reported by the nursing staff Status post extubation yesterday, now saturating 95-100% on 2 L of oxygen Patient is alert and awake responding appropriately Denies chest pain or shortness of breath Vital signs reviewed stable Hospitalist Physical - Constitutional Vitals: Temp Pulse Resp BP Pulse Ox 98.8 F 80 24 127/82 100 03/15/17 04:00 03/15/17 07:30 03/15/17 07:30 03/15/17 07:30 03/15/17 07:30 General appearance: Present: no acute distress, other (thin built) - EENT Eyes: Present: PERRL, EOM intact - Neck Neck: Present: supple, normal ROM - Respiratory Respiratory effort: normal Respiratory: bilateral: diminished, negative: rales, rhonchi, wheezing - Cardiovascular Rhythm: regular Heart Sounds: Present: S1 & S2 - Extremities Extremities: no ischemia, pulses intact, pulses symmetrical Peripheral Pulses: within normal limits - Abdominal General gastrointestinal: soft, non-tender, non-distended, normal bowel sounds - Integumentary Integumentary: Present: clear, warm - Psychiatric Psychiatric: appropriate mood/affect, cooperative - Neurologic Neurologic: CNII-XII intact, moves all extremities Results - Labs CBC & Chem 7: 03/15/17 04:07 03/15/17 04:07 Labs: Laboratory Last Values WBC 10.4 K/mm3 (4.5-11.0) 03/15/17 04:07 RBC 4.69 M/mm3 (3.65-5.03) 03/15/17 04:07 Hgb 15.0 gm/dl (11.8-15.2) 03/15/17 04:07 Hct 45.5 % (35.5-45.6) 03/15/17 04:07 MCV 97 fl (84-94) H D 03/15/17 04:07 MCH 32 pg (28-32) 03/15/17 04:07 MCHC 33 % (32-34) 03/15/17 04:07 RDW 13.7 % (13.2-15.2) 03/15/17 04:07 Plt Count 204 K/mm3 (140-440) 03/15/17 04:07 Lymph % (Auto) 6.2 % (13.4-35.0) L 03/15/17 04:07 [place] % (Auto) 4.2 % (0.0-7.3) 03/15/17 04:07 Eos % (Auto) 0.0 % (0.0-4.3) 03/15/17 04:07 Baso % (Auto) 0.1 % (0.0-1.8) 03/15/17 04:07 Lymph # 0.6 K/mm3 (1.2-5.4) L 03/15/17 04:07 [place] # 0.4 K/mm3 (0.0-0.8) 03/15/17 04:07 Eos # 0.0 K/mm3 (0.0-0.4) 03/15/17 04:07 Baso # 0.0 K/mm3 (0.0-0.1) 03/15/17 04:07 Seg Neutrophils % 89.5 % (40.0-70.0) H 03/15/17 04:07 Seg Neutrophils # 9.3 K/mm3 (1.8-7.7) H 03/15/17 04:07 PT 13.1 Sec. (12.2-14.9) 03/13/17 08:40 INR 1.00 (0.87-1.13) 03/13/17 08:40 APTT 27.2 Sec. (24.2-36.6) 03/13/17 08:40 POC ABG pH 7.348 (7.35-7.45) L 03/14/17 12:10 POC ABG pCO2 42.7 (35-45) 03/14/17 12:10 POC ABG pO2 97 (80-105) 03/14/17 12:10 POC ABG HCO3 23.4 03/14/17 12:10 POC ABG Total CO2 25 03/14/17 12:10 POC ABG O2 Sat 97 03/14/17 12:10 POC ABG Base Excess -2 03/14/17 12:10 FiO2 30 % 03/14/17 12:10 Sodium 138 mmol/L (137-145) 03/15/17 04:07 Potassium 5.5 mmol/L (3.6-5.0) H D 03/15/17 04:07 Chloride 104.1 mmol/L (98-107) 03/15/17 04:07 Carbon Dioxide 21 mmol/L (22-30) L 03/15/17 04:07 Anion Gap 18 mmol/L 03/15/17 04:07 BUN 19 mg/dL (9-20) 03/15/17 04:07 Creatinine 1.2 mg/dL (0.8-1.5) 03/15/17 04:07 Estimated GFR > 60 ml/min 03/15/17 04:07 BUN/Creatinine Ratio 15.83 % 03/15/17 04:07 Glucose 96 mg/dL (75-100) 03/15/17 04:07 POC Glucose 98 (70-105) 03/14/17 17:44 Lactic Acid 1.40 mmol/L (0.7-2.0) 03/13/17 13:36 Calcium 8.5 mg/dL (8.4-10.2) 03/15/17 04:07 Magnesium 3.70 mg/dL (1.7-2.3) H 03/13/17 08:40 Total Bilirubin 0.30 mg/dL (0.1-1.2) 03/15/17 04:07 Direct Bilirubin < 0.2 mg/dL (0-0.2) 03/13/17 08:40 AST 20 units/L (5-40) 03/15/17 04:07 ALT 13 units/L (7-56) 03/15/17 04:07 Alkaline Phosphatase 69 units/L (35-129) 03/15/17 04:07 Total Creatine Kinase 267 units/L (55-170) H 03/13/17 08:40 CK-MB (CK-2) 2.9 ng/mL (0.0-4.0) 03/13/17 08:40 CK-MB (CK-2) Rel Index 1.0 (0-4) 03/13/17 08:40 Troponin T < 0.010 ng/mL (0.00-0.029) 03/13/17 13:36 NT-Pro-B Natriuret Pep 45.83 pg/mL (0-900) 03/13/17 08:40 Total Protein 6.5 g/dL (6.3-8.2) 03/15/17 04:07 Albumin 3.4 g/dL (3.9-5) L 03/15/17 04:07 Albumin/Globulin Ratio 1.1 % 03/15/17 04:07 Urine Color Yellow (Yellow) 03/13/17 08:44 Urine Turbidity Clear (Clear) 03/13/17 08:44 Urine pH 6.0 (5.0-7.0) 03/13/17 08:44 Ur Specific [place] 1.013 (1.003-1.030) 03/13/17 08:44 Urine Protein 100 mg/dl mg/dL (Negative) 03/13/17 08:44 Urine Glucose (UA) 150 mg/dL (Negative) 03/13/17 08:44 Urine Ketones Tr mg/dL (Negative) 03/13/17 08:44 Urine Blood Mod (Negative) 03/13/17 08:44 Urine Nitrite Neg (Negative) 03/13/17 08:44 Urine Bilirubin Neg (Negative) 03/13/17 08:44 Urine Urobilinogen < 2.0 mg/dL (<2.0) 03/13/17 08:44 Ur Leukocyte Esterase Neg (Negative) 03/13/17 08:44 Urine WBC (Auto) 1.0 /HPF (0.0-6.0) 03/13/17 08:44 Urine RBC (Auto) 2.0 /HPF (0.0-6.0) 03/13/17 08:44 U Epithel Cells (Auto) < 1.0 /HPF (0-13.0) 03/13/17 08:44 Hyaline Casts 1 /LPF 03/13/17 08:44 Urine Mucus Few /HPF 03/13/17 08:44 Urine Opiates Screen Presumptive negative 03/13/17 08:43 Urine Methadone Screen Presumptive negative 03/13/17 08:43 Ur Barbiturates Screen Presumptive positive 03/13/17 08:43 Ur Phencyclidine Scrn Presumptive negative 03/13/17 08:43 Ur Amphetamines Screen Presumptive negative 03/13/17 08:43 U Benzodiazepines Scrn Presumptive negative 03/13/17 08:43 Urine Cocaine Screen Presumptive positive 03/13/17 08:43 U Marijuana (THC) Screen Presumptive positive 03/13/17 08:43 Drugs of Abuse Note Disclamer 03/13/17 08:43
[2017-03-15] MEDS: BROVANA NEBU IH SCH (11:20)
[2017-03-15] MEDS: PULMICORT IH SCH (11:21)
--- NOTE | 2017-03-15 12:30 | Progress Note ---
Assessment and Plan 61 y/o male with acute respiratory failure secondary to asthma exacerbation 1. Steroids changed to q8 hour dosing. That is ok 2. continue pulmicort and brovana 3. Po therapy 4. Ok with transfer to the floor 5. Will continue to follow along with you. Subjective Date of service: 03/15/17 Interval history: No acute events overnight. Successfully extubated and stable. Did not require bipap therapy. Objective Vital Signs - 12hr 03/15/17 03/15/17 03/15/17 00:30 00:46 01:00 Temperature Pulse Rate 73 79 84 Respiratory 19 21 20 Rate Blood Pressure 118/73 118/73 118/73 O2 Sat by Pulse 100 100 100 Oximetry 03/15/17 03/15/17 03/15/17 01:16 01:30 01:46 Temperature Pulse Rate 76 76 76 Respiratory 20 21 20 Rate Blood Pressure 118/73 118/73 118/73 O2 Sat by Pulse 100 100 100 Oximetry 03/15/17 03/15/17 03/15/17 02:00 02:16 02:30 Temperature Pulse Rate 71 88 77 Respiratory 19 18 20 Rate Blood Pressure 130/87 130/87 130/89 O2 Sat by Pulse 100 100 100 Oximetry 03/15/17 03/15/17 03/15/17 02:46 03:00 03:16 Temperature Pulse Rate 82 81 87 Respiratory 20 22 24 Rate Blood Pressure 130/89 135/83 135/83 O2 Sat by Pulse 100 100 100 Oximetry 03/15/17 03/15/17 03/15/17 03:30 03:46 04:00 Temperature 98.8 F Pulse Rate 87 89 84 Respiratory 19 24 20 Rate Blood Pressure 117/78 117/78 118/82 O2 Sat by Pulse 74 L 100 98 Oximetry 03/15/17 03/15/17 03/15/17 04:16 04:30 04:46 Temperature Pulse Rate 81 84 85 Respiratory 20 22 22 Rate Blood Pressure 118/82 132/87 132/87 O2 Sat by Pulse 100 100 100 Oximetry 03/15/17 03/15/17 03/15/17 05:00 05:16 05:30 Temperature Pulse Rate 89 94 H 92 H Respiratory 20 19 19 Rate Blood Pressure 117/81 117/81 132/86 O2 Sat by Pulse 99 Oximetry 03/15/17 03/15/17 03/15/17 05:46 06:00 06:16 Temperature Pulse Rate 95 H 79 86 Respiratory 17 21 22 Rate Blood Pressure 132/86 129/92 129/92 O2 Sat by Pulse 100 100 98 Oximetry 03/15/17 03/15/17 03/15/17 06:30 06:46 07:00 Temperature Pulse Rate 84 85 85 Respiratory 21 21 25 H Rate Blood Pressure 123/79 123/79 114/88 O2 Sat by Pulse 98 98 Oximetry 03/15/17 03/15/17 03/15/17 07:16 07:30 07:46 Temperature Pulse Rate 88 80 94 H Respiratory 23 24 18 Rate Blood Pressure 114/88 127/82 127/82 O2 Sat by Pulse 99 100 99 Oximetry 03/15/17 03/15/17 03/15/17 08:00 08:16 08:30 Temperature 98.1 F Pulse Rate 76 82 77 Respiratory 24 22 23 Rate Blood Pressure 123/85 127/82 133/95 O2 Sat by Pulse 100 100 Oximetry 03/15/17 03/15/17 03/15/17 08:46 09:00 09:16 Temperature Pulse Rate 86 90 76 Respiratory 15 25 H 21 Rate Blood Pressure 133/95 120/87 120/87 O2 Sat by Pulse 100 100 100 Oximetry 03/15/17 03/15/17 03/15/17 09:30 09:46 10:00 Temperature Pulse Rate 82 92 H 81 Respiratory 24 17 21 Rate Blood Pressure 128/89 120/87 124/94 O2 Sat by Pulse 98 100 Oximetry Constitutional: no acute distress Eyes: non-icteric Neck: supple Effort: normal Ascultation: Bilateral: diminished breath sounds Percussion: Bilateral: not dull Cardiovascular: regular rate and rhythm Gastrointestinal: normoactive bowel sounds Integumentary: normal Extremities: no edema CBC and BMP: 03/15/17 04:07 03/15/17 04:07 ABG, PT/INR, D-dimer: ABG POC ABG pH 7.348 (7.35-7.45) L 03/14/17 12:10 POC ABG pCO2 42.7 (35-45) 03/14/17 12:10 POC ABG pO2 97 (80-105) 03/14/17 12:10 POC ABG HCO3 23.4 03/14/17 12:10 POC ABG Total CO2 25 03/14/17 12:10 POC ABG O2 Sat 97 03/14/17 12:10 PT/INR, D-dimer PT 13.1 Sec. (12.2-14.9) 03/13/17 08:40 INR 1.00 (0.87-1.13) 03/13/17 08:40 Abnormal lab findings: Abnormal Labs 03/13/17 03/14/17 03/15/17 15:24 12:10 04:07 MCV 97 H D Lymph % (Auto) 6.2 L Lymph # 0.6 L Seg Neutrophils % 89.5 H Seg Neutrophils # 9.3 H POC ABG pH 7.348 L POC ABG pO2 112 H Potassium Carbon Dioxide Albumin 03/15/17 04:07 MCV Lymph % (Auto) Lymph # Seg Neutrophils % Seg Neutrophils # POC ABG pH POC ABG pO2 Potassium 5.5 H D Carbon Dioxide 21 L Albumin 3.4 L
[2017-03-15] MEDS: PEPCID IV SCH (13:08)
[2017-03-15] MEDS ORDERED: XANAX PO PRN (17:46)
[2017-03-15] MEDS: LOVENOX SUB-Q SCH (18:01)
[2017-03-15] MEDS: ATIVAN IV PRN (21:13)
[2017-03-16] MEDS: ATIVAN IV PRN (01:39)
[2017-03-16] MEDS: ATROVENT IH SCH ×5 (03:30→20:21)
[2017-03-16] MEDS: BROVANA NEBU IH SCH ×3 (03:33→20:21)
[2017-03-16] MEDS: PULMICORT IH SCH ×3 (03:34→20:21)
[2017-03-16] MEDS: HALDOL IM PRN ×2 (03:41→10:21)
[2017-03-16] MEDS: ZOSYN/NS 3.375GM/50ML 3.375 GM/50 ML BAG IV SCH ×3 (06:27→23:31)
[2017-03-16 08:03] LABS: Basophils % (Auto) 0.3 % (0.0-1.8); Hematocrit 42.4 % (35.5-45.6); Hemoglobin 14.2 gm/dl (11.8-15.2); Mean Corpuscular HGB Conc 33 % (32-34); Mean Corpuscular Hemoglobin 32 pg (28-32); Mean Corpuscular Volume 96 fl (84-94); Platelet Count 205 K/mm3 (140-440); Red Blood Count 4.42 M/mm3 (3.65-5.03); Red Cell Distribution Width 13.4 % (13.2-15.2)
[2017-03-16 08:30] LABS: BUN/Creatinine Ratio 19.09; Blood Urea Nitrogen 21 mg/dL (9-20); Calcium 8.9 mg/dL (8.4-10.2); Chloride 104.1 mmol/L (98-107); Glucose 95 mg/dL (75-100); Sodium 143 mmol/L (137-145)
[2017-03-16 08:56] LABS: Anion Gap 15 mmol/L; Carbon Dioxide 28 mmol/L (22-30)
[2017-03-16] MEDS: LOVENOX SUB-Q SCH (10:21)
--- NOTE | 2017-03-16 11:56 | Progress Note ---
Assessment and Plan Assessment and Plan - Patient Problems (1) COPD (chronic obstructive pulmonary disease) Current Visit: Yes Status: Acute Qualifiers: COPD type: C Chronic bronchitis type: patient continue on Nebulizers, inhalation and IV steroids (2) Respiratory failure Current Visit: Yes Status: Acute Qualifiers: Chronicity: acute Respiratory failure complication: hypercapnia Qualified Code(s): J96.02 - Acute respiratory failure with hypoxia Plan to address problem: patient managed by Pulmonary, IV steroids wean to Q8hrs per dosing, patient continue on pulmicort and brovana Nebulizer treatments. (3) ongoing tobacco use Tobacco cessation counselling was done. (4) DVT prophylaxis with he is on Lovenox Leukocytosis. Temperature IV Solu-Medrol. We will trend Subjective Date of service: 03/16/17 Principal diagnosis: Acute Respiratory failure with hypoxia Objective - Constitutional Vitals: Vital Signs - 12hr 03/16/17 03/16/17 03/16/17 00:00 07:45 09:07 Temperature 97.9 F 98.0 F Pulse Rate [ 72 Anterior Bilateral Throughout] Pulse Rate [ 78 Right Dorsalis Pedis] Pulse Rate [ 67 Right Radial] Respiratory 18 20 Rate Respiratory 16 Rate [Anterior Bilateral Throughout] Blood Pressure 130/78 121/76 [Left Arm] O2 Sat by Pulse 98 99 Oximetry 03/16/17 03/16/17 09:10 09:49 Temperature Pulse Rate [ 58 L Anterior Bilateral Throughout] Pulse Rate [ Right Dorsalis Pedis] Pulse Rate [ Right Radial] Respiratory Rate Respiratory 18 Rate [Anterior Bilateral Throughout] Blood Pressure [Left Arm] O2 Sat by Pulse 97 Oximetry General appearance: Present: no acute distress, well-nourished - EENT Eyes: PERRL, EOM intact ENT: hearing intact, clear oral mucosa Ears: bilateral: normal - Neck Neck: supple, normal ROM - Respiratory Respiratory effort: normal, labored (shortness of breath, patient cannot lie down flat wothout SOB) Respiratory: bilateral: CTA - Breasts Breasts: deferred - Cardiovascular Rhythm: regular Heart Sounds: Present: S1 & S2. Absent: gallop, rub Extremities: pulses intact, No edema, normal color, Full ROM - Gastrointestinal General gastrointestinal: Present: soft, non-tender, non-distended, normal bowel sounds - Genitourinary Male genitourinary: deferred - Integumentary Integumentary: clear, warm, dry - Musculoskeletal Musculoskeletal: 1, strength equal bilaterally - Neurologic Neurologic: moves all extremities - Psychiatric Psychiatric: memory intact, appropriate mood/affect, intact judgment & insight - Labs CBC & Chem 7: 03/16/17 07:40 03/16/17 07:40 Labs: Abnormal lab results 03/16/17 03/16/17 Range/Units 07:40 07:40 WBC 13.0 H (4.5-11.0) K/mm3 MCV 96 H (84-94) fl Lymph % (Auto) 6.5 L (13.4-35.0) % Lymph # 0.8 L (1.2-5.4) K/mm3 Seg Neutrophils % 86.7 H (40.0-70.0) % Seg Neutrophils # 11.3 H (1.8-7.7) K/mm3 BUN 21 H (9-20) mg/dL
--- NOTE | 2017-03-16 13:01 | Progress Note ---
Assessment and Plan Acute respiratory failure. Episode. Resolved COPD exacerbation Asthmatic bronchitis Tobacco abuse Recommendations Continue albuterol nebulizations every 4-6 hours. Initiate on either Advair or Spiriva inhaler prednisone 30 mg by mouth daily with 7 day taper Smoking cessation discussed Operation pulmonary function test evaluation to reevaluate for COPD Influenza and pneumonia vaccination if not completed already Ambulate on room air and monitor for need for supplemental oxygen If he remains stable, patient can be discharged after this, at the discretion of primary physician Subjective Date of service: 03/16/17 Principal diagnosis: Acute Respiratory failure with hypoxia Interval history: Reports no respiratory complaints at the present time. Denies shortness of breath. Objective Vital Signs - 12hr 03/16/17 03/16/17 03/16/17 07:45 09:07 09:10 Temperature 98.0 F Pulse Rate [ 72 Anterior Bilateral Throughout] Pulse Rate [ 67 Right Radial] Respiratory 20 Rate Respiratory 16 Rate [Anterior Bilateral Throughout] Blood Pressure 121/76 [Left Arm] O2 Sat by Pulse 99 97 Oximetry 03/16/17 09:49 Temperature Pulse Rate [ 58 L Anterior Bilateral Throughout] Pulse Rate [ Right Radial] Respiratory Rate Respiratory 18 Rate [Anterior Bilateral Throughout] Blood Pressure [Left Arm] O2 Sat by Pulse Oximetry Constitutional: no acute distress, asleep, other (easily arousable and able to answer questions) Eyes: non-icteric Neck: supple Effort: normal Ascultation: Bilateral: clear, diminished breath sounds Percussion: Bilateral: not dull Cardiovascular: regular rate and rhythm Gastrointestinal: normoactive bowel sounds Integumentary: normal Extremities: no edema Neurologic: normal mental status, non-focal exam CBC and BMP: 03/16/17 07:40 03/16/17 07:40 ABG, PT/INR, D-dimer: ABG POC ABG pH 7.348 (7.35-7.45) L 03/14/17 12:10 POC ABG pCO2 42.7 (35-45) 03/14/17 12:10 POC ABG pO2 97 (80-105) 03/14/17 12:10 POC ABG HCO3 23.4 03/14/17 12:10 POC ABG Total CO2 25 03/14/17 12:10 POC ABG O2 Sat 97 03/14/17 12:10 PT/INR, D-dimer PT 13.1 Sec. (12.2-14.9) 03/13/17 08:40 INR 1.00 (0.87-1.13) 03/13/17 08:40 Abnormal lab findings: Abnormal Labs 03/13/17 03/14/17 03/15/17 15:24 12:10 04:07 WBC MCV 97 H D Lymph % (Auto) 6.2 L Lymph # 0.6 L Seg Neutrophils % 89.5 H Seg Neutrophils # 9.3 H POC ABG pH 7.348 L POC ABG pO2 112 H Potassium Carbon Dioxide BUN Albumin 03/15/17 03/16/17 03/16/17 04:07 07:40 07:40 WBC 13.0 H MCV 96 H Lymph % (Auto) 6.5 L Lymph # 0.8 L Seg Neutrophils % 86.7 H Seg Neutrophils # 11.3 H POC ABG pH POC ABG pO2 Potassium 5.5 H D Carbon Dioxide 21 L BUN 21 H Albumin 3.4 L Chest x-ray: report reviewed
[2017-03-17] MEDS: ATROVENT IH SCH ×2 (05:51→08:11)
[2017-03-17] MEDS: ZOSYN/NS 3.375GM/50ML 3.375 GM/50 ML BAG IV SCH (06:17)
[2017-03-17] MEDS: PULMICORT IH SCH (08:11)
[2017-03-17] MEDS: BROVANA NEBU IH SCH (08:11)
[2017-03-17] MEDS: LOVENOX SUB-Q SCH (09:21)
[2017-03-17 10:07] VITALS: BP 125/70
--- NOTE | 2017-03-17 10:15 | Discharge Summary ---
Providers - Providers Date of Admission: 03/13/17 10:47 Date of discharge: 03/17/17 Attending physician: ITZEL NGUYEN 03/13/17 11:05 Consult to Physician [CONS] Stat Consulting Provider: CHANDAN JUÁREZ Reason For Exam: status asthmaticus Place consult to:: [facility] [employer] Notified:: yes Was contact made?: Yes If yes, spoke with:: DR JUÁREZ Time called:: 09:50 03/15/17 09:03 Physical Therapy Evaluation and Treat [CONS] Routine Comment: Reason For Exam: s/p extubation/debility Primary care physician: IN FILE OPERATOR Hospitalization Condition: Stable Hospital course: Discharge diagnoses: Acute respiratory failure. Resolved COPD exacerbation Asthmatic bronchitis Tobacco abuse Disposition: DISCHARGED TO HOME OR SELFCARE Time spent for discharge: 32 minutes Core Measure Documentation - Palliative Care Palliative Care/ Comfort Measures: Not Applicable - Core Measures Any of the following diagnoses?: none Exam - Physical Exam Narrative exam: GENERAL: well-developed and well-nourished lying on bed appeared to be in no discomfort. HEENT: Normocephalic. Atraumatic. No conjunctival congestion or icterus. Patient has moist mucous membranes. NECK: Supple. Trachea midline. CHEST/LUNGS: Clear to auscultated bilaterally, breathing nonlabored. No wheezes crackles or rhonchi. HEART/CARDIOVASCULAR: Regular in rate and rhythm. S1 and S2 positive. ABDOMEN: Abdomen is soft, nontender. Patient has normal bowel sounds. SKIN: There is no rash. Warm and dry. NEURO: No focal motor deficit. Follows command. MUSCULOSKELETAL: No joint effusion or tenderness. EXTRIMITY: No edema, no cyanosis or clubbing. PSYCH: Cooperative. - Constitutional Vitals: Temp Pulse Resp BP Pulse Ox 98.7 F 63 16 125/70 96 03/17/17 07:50 03/17/17 08:12 03/17/17 08:12 03/17/17 07:50 03/17/17 08:13 Plan Activity: advance as tolerated Weight Bearing Status: Weight Bear as Tolerated Diet: low fat, low salt Follow up with: PRIMARY CARE, [Primary Care Provider] - 3-5 Days Prescriptions: ALBUTEROL NEB's [Proventil 0.083% NEBS] 2.5 mg IH Q6HRT PRN 30 Days PRN Reason: Shortness Of Breath Budesoni/Formotero 160-4.5(Nf) [Symbicort 160-4.5 (Nf)] 2 puff IH BID 30 Days predniSONE [Deltasone] 50 mg PO QDAY #7 tab
[2017-03-17] MEDS ORDERED: ZOSYN/NS 4.5GM/100ML 4.5 GM/100 ML VIAL IV SCH (14:00)
== END 2017-03-17 14:00 | disposition home or self-care (01) | DRG 208 ==
LOC: ED 08:11 → CC1 10:47 → 3A 03-15 12:33
PROVIDERS: ADMIT Internal Medicine; ATTEND Internal Medicine
PROC: 5A1945Z Respiratory Ventilation, 24-96 Consecutive Hours (ICD-10-PCS; principal; 2017-03-13)
PROC: 4A033R1 Measurement of Arterial Saturation, Peripheral, Percutaneous Approach (ICD-10-PCS; 2017-03-13)
PROC: 0BH17EZ Insertion of Endotracheal Airway into Trachea, Via Natural or Artificial Opening (ICD-10-PCS; 2017-03-13)
PROC: 3E0234Z Introduction of Serum, Toxoid and Vaccine into Muscle, Percutaneous Approach (ICD-10-PCS; 2017-03-13)
DX: J96.01 Acute respiratory failure with hypoxia (principal); J45.52 Severe persistent asthma with status asthmaticus; J44.9 Chronic obstructive pulmonary disease, unspecified; F17.200 Nicotine dependence, unspecified, uncomplicated; J96.02 Acute respiratory failure with hypercapnia; E87.5 Hyperkalemia
CPT/HCPCS: 36415; 36600; 71010; 80048; 80053; 80074; 80307; 81001; 82140; 82550; 82553; 82803; 82962; 83735; 83880; 84484; 85025; 85610; 85730; 87040; 87070; 87076; 87186; 87205; 90686; 90732; 93005; 93010; 94002; 94003; 94640; 94760; 96365; 96372; J0330; J1630; J1650; J1956; J2060; J2543; J2930; J7030; J7040

== ENCOUNTER 2017-03-27 07:44 | Emergency (ER) | payer OTHER ==
[2017-03-27] MEDS ORDERED: PROVENTIL IH ONE ×2 (07:50→07:57)
[2017-03-27] MEDS ORDERED: ATROVENT IH ONE ×2 (07:50→07:57)
[2017-03-27 08:34] LABS: Basophils % (Auto) 0.3 % (0.0-1.8); Eosinophils % (Auto) 1.4 % (0.0-4.3); Hematocrit 45.1 % (35.5-45.6); Hemoglobin 14.5 gm/dl (11.8-15.2); Mean Corpuscular HGB Conc 32 % (32-34); Mean Corpuscular Hemoglobin 32 pg (28-32); Mean Corpuscular Volume 99 fl (84-94); Platelet Count 274 K/mm3 (140-440); Red Blood Count 4.54 M/mm3 (3.65-5.03); Red Cell Distribution Width 14.2 % (13.2-15.2); White Blood Count 15.3 K/mm3 (4.5-11.0)
--- NOTE | 2017-03-27 08:35 | Emergency Department Report ---
HPI - General Time Seen by Provider: 03/27/17 07:50 - HPI HPI: This is a 61-year-old Afro-[place] male who presents the emergency department by EMS from home with complaint of a 24-hour history of present worsening shortness of breath. Patient has a history of asthma and COPD, as well as tobacco abuse, but is not oxygen dependent at home. He was recently here for some other symptoms and required intubation at that time. He has a primary care doctor but has not seen them regarding his symptoms. He denies any chest pain, nausea, vomiting, diaphoresis or lower extremity swelling. No recent travel or sick contacts at home. ED Past Medical Hx - Past Medical History Hx Congestive Heart Failure: No Hx Diabetes: No Hx Asthma: Yes Hx COPD: Yes - Social History Smoking Status: Current Every Day Smoker Substance Use Type: None - Medications Home Medications: Home Medications Medication Instructions Recorded Confirmed Last Taken Type Dicyclomine HCl 10 mg PO BID 03/14/17 03/27/17 Unknown History Omeprazole 40 mg PO DAILY 03/14/17 03/27/17 Unknown History Tiotropium [Spiriva] 2 puff INHALATION QDAY PRN 03/14/17 03/27/17 Unknown History ALBUTEROL NEB's [Proventil 0.083% 2.5 mg IH Q6HRT PRN 30 Days 03/17/17 03/27/17 Unknown Rx NEBS] Budesoni/Formotero 160-4.5(Nf) 2 puff IH BID 30 Days 03/17/17 03/27/17 Unknown Rx [Symbicort 160-4.5 (Nf)] predniSONE [Deltasone] 50 mg PO QDAY #7 tab 03/17/17 03/27/17 Unknown Rx ED Review of Systems ROS: Stated complaint: NADINE Other details as noted in HPI Comment: All other systems reviewed and negative Constitutional: denies: chills, fever Eyes: denies: eye pain, eye discharge, vision change ENT: denies: ear pain, throat pain Respiratory: cough, shortness of breath, wheezing Cardiovascular: denies: chest pain, palpitations Gastrointestinal: denies: abdominal pain, nausea, diarrhea Genitourinary: denies: urgency, dysuria Musculoskeletal: denies: back pain, joint swelling, arthralgia Skin: denies: rash, lesions Neurological: denies: headache, weakness, paresthesias Physical Exam - Physical Exam Vital Signs: Vital Signs 03/27/17 03/27/17 03/27/17 07:45 07:52 07:59 Temperature 97.7 F Pulse Rate 109 H 89 109 H Respiratory 28 H 17 19 Rate Blood Pressure 120/84 120/84 O2 Sat by Pulse 100 100 100 Oximetry 03/27/17 08:00 Temperature Pulse Rate 100 H Respiratory 28 H Rate Blood Pressure O2 Sat by Pulse 100 Oximetry Physical Exam: GENERAL: The patient is well-developed well-nourished. HEENT: Normocephalic. Atraumatic. Extraocular motions are intact. Patient has moist mucous membranes. Pupils equal reactive to light bilaterally. NECK: Supple. Trachea is midline. CHEST/LUNGS: Moderate wheezing throughout the chest. There is tachypnea and some super clavicular accessory muscle use. There is respiratory distress noted. HEART/CARDIOVASCULAR: Regular. There is mild tachycardia. There is no gallop rub or murmur. ABDOMEN: Abdomen is soft, nontender. Patient has normal bowel sounds. There is no abdominal distention. SKIN: Skin is warm and dry. NEURO: The patient is awake, alert, and oriented. The patient is cooperative. The patient has no focal neurologic deficits. The patient has normal speech. MUSCULOSKELETAL: There is no tenderness or deformity. There is no limitation range of motion. There is no evidence of acute injury. Cap refill less than 2 seconds. ED Course Vital Signs 03/27/17 03/27/17 03/27/17 07:45 07:52 07:59 Temperature 97.7 F Pulse Rate 109 H 89 109 H Respiratory 28 H 17 19 Rate Blood Pressure 120/84 120/84 O2 Sat by Pulse 100 100 100 Oximetry 03/27/17 08:00 Temperature Pulse Rate 100 H Respiratory 28 H Rate Blood Pressure O2 Sat by Pulse 100 Oximetry ED Medical Decision Making - Lab Data Result diagrams: 03/27/17 08:15 03/27/17 08:15 - EKG Data -: EKG Interpreted by Me EKG shows normal: sinus rhythm, axis, intervals, QRS complexes, ST-T waves ( nonspecific CT changes) Rate: tachycardia (108 bpm) - EKG Data When compared to previous EKG there are: no significant change Interpretation: unchanged when compared t (03/13/17) - Radiology Data Radiology results: image reviewed interpreted by me: Chest x-ray shows some hyperinflation of the lungs and flattening of the diaphragms consistent with COPD/emphysema. No obvious pneumonia. No pleural effusions. No pneumothorax. - Medical Decision Making 61-year-old male presents with acute shortness of breath. He presents via EMS in respiratory distress. Placed on BiPAP machine and given Solu-Medrol, magnesium and breathing treatments. After the treatments, the patient does appear to be improved and does not appear to be in acute distress. Patient had an x-ray of the chest that does not show any acute process. Patient's labs show a leukocytosis of 15,000 and a elevated and equivocal d-dimer. About the point where the patient was going to have a CT angiography of the chest, the patient ripped off his BiPAP mask and says he no longer wants any treatment. He refused the CT angiography of the chest. I spoke with the patient at bedside and great detail about the risks of noncompliance with treatments and evaluation and the patient is asking to leave the hospital. I discussed with him the risks of leaving that includes worsening shortness of breath, PA, apnea , disability, coma and . Despite this fact, and with all of his faculties , the patient still wants to leave AGAINST MEDICAL ADVICE and did sign the form. He has been encouraged to return to the emergency department if he changes his mind or with any acute distress. - Differential Diagnosis COPD, emphysema, PE, bronchitis, pneumonia, asthma Critical Care Time: No Critical care attestation.: If time is entered above; I have spent that time in minutes in the direct care of this critically ill patient, excluding procedure time. ED Disposition Clinical Impression: Respiratory distress, COPD exacerbation Disposition: LEFT AGAINST MEDICAL ADVICE Is pt being admited?: No Instructions: Chronic Obstructive Pulmonary Disease (ED) Referrals: PRIMARY CARE, [Primary Care Provider] - 3-5 Days Time of Disposition: 15:21
[2017-03-27 08:43] VITALS: BP 115/91
[2017-03-27 08:54] LABS: ISTAT Base Excess 1; ISTAT HCO3 25.9; ISTAT PCO2 41.8 (35-45); ISTAT PH 7.401 (7.35-7.45); ISTAT PO2 80 (80-105); ISTAT SO2 96; ISTAT TCO2 27
[2017-03-27 08:54] LABS: Alanine Aminotransferase 18 units/L (7-56); Albumin 3.8 g/dL (3.9-5); Albumin/Globulin Ratio 1.3 %; Alkaline Phosphatase 74 units/L (35-129); Anion Gap 17 mmol/L; Blood Urea Nitrogen 21 mg/dL (9-20); Calcium 8.7 mg/dL (8.4-10.2); Carbon Dioxide 26 mmol/L (22-30); Chloride 100.2 mmol/L (98-107); Glucose 103 mg/dL (75-100); Potassium 3.6 mmol/L (3.6-5.0); Sodium 140 mmol/L (137-145); Total Protein 6.7 g/dL (6.3-8.2)
--- NOTE | 2017-03-27 09:14 | Admit Criteria Form ---
Admission Criteria Documentation: RESPIRATORY FAILURE GRG Clinical Indications for Admission to Inpatient Care (Place 'X' for any and all applicable criteria): Hospital admission is needed for appropriate care of the patient because of acute respiratory failure or insufficiency as indicated by ANY ONE of the following(1)(2)(3)(4)(5)(6)(7)(8): [X ]I. Mechanical ventilation needed (acute invasive or noninvasive) [ ]II. Severe ventilation deficit as indicated by ANY ONE of the following (9) [ ]a) Respiratory acidosis (pH less than 7.32 and partial pressure of carbon dioxide greater than 40 mm Hg (5.3 kPa)) [ ]b) Partial pressure of carbon dioxide greater than 44 mm Hg (5.9 kPa ) (new) [ ]c) Airflow measurements less than 25% of predicted (eg, peak expiratory flow rate less than 100 L/minute) [ ]d) Forced vital capacity less than 15 mL/kg of ideal body weight, or 50% decrease in vital capacity from baseline [ ]III. Noncardiac pulmonary edema not resolving with rapid emergency treatment (8) [ ]IV. Severe respiratory distress as indicated by ANY ONE of the following: [ ]a) Severe tachypnea (respiratory rate greater than 30, greater than 45 for 6-month-old, greater than 60 for ) [ ]b) Severe hypoxemia (partial pressure of oxygen less than 50 mm Hg ( 6.7 kPa) on greater than 50% oxygen or partial pressure of oxygen to FIO2 ratio less than 200) [ ]c) Mental status deterioration from respiratory disease [ ]V. Airway obstruction or inadequate protection [A](10)(11) The original [employer] content created by [employer] has been revised. The portions of the content which have been revised are identified through the use of italic text or in bold, and [employer] [facility] [place] [facility] [email or web address] has neither reviewed nor approved the modified material. All other unmodified content is copyright [employer]. Please see references footnoted in the original [employer] edition 2016
[2017-03-27] MEDS ORDERED: NACL ONE (09:35)
--- NOTE | 2017-03-27 10:20 | XRay Report ---
Portable chest: SOB. The lungs are hyperinflated but clear. The heart is normal in size and there is no vascular congestion. These findings are unchanged compared to March 14 however the endotracheal tube has been removed. Impression: Chronic lung disease. No acute change.
[2017-03-27 11:12] LABS: Creatine Kinase 84 units/L (55-170)
== END 2017-03-27 09:29 | disposition left against medical advice (07) ==
LOC: ED 07:44
DX: J44.1 Chronic obstructive pulmonary disease with (acute) exacerbation (principal); F17.200 Nicotine dependence, unspecified, uncomplicated
CPT/HCPCS: 36415; 71010; 80053; 82550; 82553; 82803; 83735; 83880; 84484; 85025; 85379; 93005; 93010; 94640